=== PATIENT | male | born 1945 | race Caucasian/White ===

== ENCOUNTER → 2018-12-07 | Outpatient (CLI) | payer MEDICARE, BC ==
--- NOTE | 2018-12-07 14:43 | RAD ---
EXAM: Chest CT without intravenous contrast. HISTORY: Fall. Rib fractures. TECHNIQUE: Computed tomographic images of the chest were obtained without contrast. Multiplanar reformatting was performed. *One or more of the following individualized dose reduction techniques were utilized for this examination: 1. Automated exposure control. 2. Adjustment of the mA and/or kV according to patient size. 3. Use of iterative reconstruction technique. COMPARISON: None. FINDINGS: There are healed posterior left eighth and ninth rib fractures.. There are chronic healed lateral left tenth and eleventh rib fractures. There there are suspected healing anterolateral left fourth, fifth and sixth rib fractures. There are healed anterior right fifth and sixth rib fractures. There are chronic appearing mild compression fractures at T7 and T8 and is a chronic anterior wedge compression fracture at T3. There is mild pulmonary emphysema. There is no pneumothorax or pleural effusion. There are few calcified granulomas. There are few tiny noncalcified pulmonary nodules measuring approximately 1 mm. These are likely benign based on size. No suspicious noncalcified pulmonary nodule is seen. There is lingular atelectasis or scarring. The heart is normal in size. There is a small pericardial effusion. There is coronary artery atherosclerosis and calcification of the aortic valve. There is a large cyst within the upper pole the right kidney measuring 9.1 cm on the [id number]. This partially excluded from the [id number]. IMPRESSION: 1. Suspected healing anterolateral left fourth, fifth and sixth rib fractures and healed left eighth, ninth, tenth and eleventh and right fifth and sixth rib fractures. 2. Mild pulmonary emphysema. 3. Chronic appearing thoracic vertebral fractures, described above. 4. Large right renal cyst, partially excluded from the [id number]. 5. Small pericardial effusion. 6. Healed granulomatous disease. Electronically signed by: Dianne Jennings MD (12/07/2018 2:40 PM) [place] [id number]
--- NOTE | 2018-12-07 16:17 | RAD ---
Bilateral lower extremity arterial duplex ultrasound 12/07/2018 INDICATION: Claudication COMPARISON STUDY: None Discussion: Ultrasound evaluation of the major arteries of the bilateral lower extremities was performed including color Doppler imaging with spectral analysis Right lower extremity: Calcification involving the right common femoral artery with approximately 20 percent visual narrowing is seen on color Doppler imaging. Waveforms and velocities are essentially unremarkable. Profunda artery is partially visualized but appears grossly patent. Visualized right superficial femoral artery demonstrates grossly normal waveform and velocities. Popliteal artery demonstrates normal waveforms and morphology. Posterior tibial and dorsalis pedis arteries appear grossly patent. Left lower extremity: Calcification of the left common femoral artery without focal stenosis is seen. Visualized performed artery is grossly patent. Mild elevation of mid left SFA velocities to 190 cm/s is seen without associated visual stenosis. Popliteal artery appears grossly patent. Dorsalis pedis and posterior tibial arteries were grossly patent. IMPRESSION: Diffuse atherosclerotic vascular disease without definitive focal hemodynamically significant stenosis. Mild nonspecific elevation in the left mid SFA is noted. If continued clinical concern persists CT angiography may be helpful. Electronically signed by: Zaki Alarcon MD (12/07/2018 4:15 PM) [id number]
== END | disposition home or self-care (01) ==
LOC: US 12:43
PROVIDERS: ATTEND Family Medicine
DX: S22.42XD Multiple fractures of ribs, left side, subsequent encounter for fracture with routine healing (principal); J43.9 Emphysema, unspecified; N28.1 Cyst of kidney, acquired; I31.3 Pericardial effusion (noninflammatory); I25.10 Atherosclerotic heart disease of native coronary artery without angina pectoris; I70.0 Atherosclerosis of aorta; I10 Essential (primary) hypertension; Z87.891 Personal history of nicotine dependence; X58.XXXD Exposure to other specified factors, subsequent encounter
CPT/HCPCS: 71250; 93925

== ENCOUNTER → 2018-12-22 | Outpatient (CLI) | payer MEDICARE, BC ==
[2018-12-22] MEDS: IOHEXOL 350 MG/ML 100 ML VIAL. IV ONE (09:11)
--- NOTE | 2018-12-22 12:16 | RAD ---
CT angiography of the pelvis, and bilateral lower extremities 12/22/2018 INDICATION: Bilateral claudication. Evidence of possibly hemodynamically significant stenosis in the left lower extremity superficial femoral artery. COMPARISON STUDY: Lower extremity arterial duplex ultrasound December 07, 2018 TECHNIQUE: Multidetector CT imaging of the pelvis and bilateral lower extremities was performed following the administration of IV contrast. 3-D reconstructions of pelvic, and bilateral lower extremity vasculature were created on an independent workstation and reviewed. FINDINGS: Visualized inferior most abdominal aorta is unremarkable. Right lower extremity: Mild diffuse atherosclerotic vascular disease is seen throughout the aortoiliac vasculature without hemodynamically significant stenosis. Common femoral artery is patent. Profunda artery is patent. Minimal nonflow limiting stenosis is seen in the proximal right superficial femoral artery. At the adductor canal there is up to 30 percent stenosis of the distalmost superficial femoral artery. Popliteal artery is patent.. Proximal tibial vessels are patent. Tibial vessels below the mid leg are poorly evaluated without definite evidence of atherosclerotic vascular disease. Left lower extremity: No hemodynamic significant aortoiliac stenosis is appreciated on the left. Left common femoral artery is patent. There is up to 50 percent stenosis of the left superficial femoral artery through the adductor canal. At the level of the knee joint there is high-grade stenosis of the left popliteal artery. Below knee popliteal artery appears to be patent. No definitive tibial vessel disease is seen in the left. Nonvascular findings: Bilateral knee joint effusion is noted. Rodgers's cyst noted on the left. No free fluid or free air seen in the pelvis. The bladder is probably decompressed. Visualized bowel is unremarkable. No acute osseous abnormalities are seen IMPRESSION: 1. No significant aortoiliac disease. 2.Mild narrowing in the right superficial femoral artery at the level of the adductor canal. 3. High-grade stenosis of the popliteal artery the level of the knee joint are 50 percent narrowing of the left SFA in the adductor canal. If there is significant claudication, consider conventional angiography and endovascular intervention. CT DOSING PQRS STATEMENT: One or more of the following individualized dose reduction techniques were utilized for this examination: 1. Automated exposure control 2. Adjustment of the mA and/or kV according to patient size 3. Use of iterative reconstruction technique Electronically signed by: Zaki Alarcon MD (12/22/2018 12:13 PM) [id number]
== END | disposition home or self-care (01) ==
LOC: CT 08:42
PROVIDERS: ATTEND Family Medicine
DX: I70.292 Other atherosclerosis of native arteries of extremities, left leg (principal); I70.0 Atherosclerosis of aorta; M25.462 Effusion, left knee; M25.461 Effusion, right knee; M71.22 Synovial cyst of popliteal space [Baker], left knee; I77.1 Stricture of artery
CPT/HCPCS: 75635; Q9967

== ENCOUNTER → 2019-01-03 | Outpatient (CLI) | payer MEDICARE, BC ==
--- NOTE | 2019-01-03 17:48 | RAD ---
Left lower extremity venous doppler ultrasound Indication:Contusion and pain of left lower leg.

IMP: No DVT seen in visualized veins Technique: Color Doppler, grayscale, and spectral waveform analysis is used to evaluate the left femoral and popliteal veins. Findings: No evidence of deep venous thrombosis. Normal response to augmentation, normal compressibility and normal phasicity is demonstrated. Visualized calf veins are patent. Impression: Negative for deep venous thrombosis Electronically signed by: Rohit Burris MD (01/03/2019 5:45 PM) [facility]
== END | disposition home or self-care (01) ==
LOC: US 16:36
PROVIDERS: ATTEND Physician Assistant
DX: S80.12XA Contusion of left lower leg, initial encounter (principal); R60.0 Localized edema; X58.XXXA Exposure to other specified factors, initial encounter; Y93.89 Activity, other specified; Y92.89 Other specified places as the place of occurrence of the external cause; Y99.8 Other external cause status
CPT/HCPCS: 93971

== ENCOUNTER → 2019-05-12 | Outpatient (CLI) | payer MEDICARE, BC ==
[~2019-05-12] MED LIST: AMLO5TAB10 PO; ASPI-630 PO; CRESTOR40 MG PO; EZET1TAB58 PO; ISOS60TA2 PO; LEVO125T5 PO; METO50TA29 PO; PREG75CA PO; TAMS0.4C97 PO; TIZA4TAB2 PO; VIT1CAPS12 PO
[2019-05-12 11:53] VITALS: BP 128/70
== END | disposition home or self-care (01) ==
LOC: SURG 11:40
PROVIDERS: ATTEND Anesthesiology Pain Medicine
DX: M54.16 Radiculopathy, lumbar region (principal); M51.36 Other intervertebral disc degeneration, lumbar region; H35.30 Unspecified macular degeneration; I25.10 Atherosclerotic heart disease of native coronary artery without angina pectoris; M19.90 Unspecified osteoarthritis, unspecified site; Z79.899 Other long term (current) drug therapy; Z79.891 Long term (current) use of opiate analgesic; Z79.84 Long term (current) use of oral hypoglycemic drugs; Z95.828 Presence of other vascular implants and grafts
CPT/HCPCS: 99203

== ENCOUNTER → 2019-09-16 | Outpatient (CLI) | payer MEDICARE, BC ==
[2019-05-12 11:53] VITALS: BP 128/70
== END | disposition home or self-care (01) ==
LOC: LAB 09:32
PROVIDERS: ATTEND Internal Medicine Interventional Cardiology
DX: I10 Essential (primary) hypertension (principal); I25.118 Atherosclerotic heart disease of native coronary artery with other forms of angina pectoris; E78.2 Mixed hyperlipidemia
CPT/HCPCS: 80061

== ENCOUNTER → 2019-10-06 | Outpatient (CLI) | payer MEDICARE, BC ==
[~2019-10-06] MED LIST changes: +0.9 % SODIUM CHLORIDE 10 ML VIAL ONE; +IOHEXOL 300 MG/ML 50 ML VIAL. ONE; +LIDOCAINE 1% PF 30 ML VIAL. ONE; +methylPREDNISolone ACETATE 80 MG/ML VIAL. ONE
[2019-10-06 13:15] VITALS: BP 146/73
== END | disposition home or self-care (01) ==
LOC: SURG 12:15
PROVIDERS: ATTEND Anesthesiology Pain Medicine
DX: M54.16 Radiculopathy, lumbar region (principal); I25.10 Atherosclerotic heart disease of native coronary artery without angina pectoris; Z98.890 Other specified postprocedural states; Z87.39 Personal history of other diseases of the musculoskeletal system and connective tissue; Z79.82 Long term (current) use of aspirin
CPT/HCPCS: 62323; J1040; J2001; Q9967

== ENCOUNTER → 2020-02-15 | Outpatient (CLI) | payer MEDICARE, BC ==
[2019-10-06 13:15] VITALS: BP 146/73
[~2020-02-15] MED LIST changes: -0.9 % SODIUM CHLORIDE 10 ML VIAL ONE; -IOHEXOL 300 MG/ML 50 ML VIAL. ONE; -LIDOCAINE 1% PF 30 ML VIAL. ONE; -methylPREDNISolone ACETATE 80 MG/ML VIAL. ONE
== END | disposition home or self-care (01) ==
LOC: LAB 10:58
PROVIDERS: ATTEND Psychiatry & Neurology Neurology
DX: R41.3 Other amnesia (principal)
CPT/HCPCS: 36415; 82607; 82746; 84436; 84443; 84480; 86592